=== PATIENT | female | born 1950 | race Caucasian/White ===

== ENCOUNTER 2020-10-18 02:18 | Outpatient (RCR) | payer MEDICARE, SELFPAY ==
[2020-09-27] MEDS: Normal Saline Flush 10 ML SYR IVP (09:00)
[2020-09-27 09:04] LABS: Abs Immature Grans 0.02 10^3/uL (0.0-0.06); Absolute Basophil Count 0.07 10^3/uL (0.0-0.2); Absolute Eosinophil Count 0.23 10^3/uL (0.0-0.7); Absolute Lymphocyte Count 1.47 10^3/uL (1.2-3.4); Absolute Monocyte Count 0.63 10^3/uL (0.1-0.8); Absolute Neutrophil Count 2.08 10^3/uL (1.2-6.7); Basophils % 1.6; Eosinophils % 5.1; HCT 37.9 % (36.0-46.0); HGB 12.6 g/dL (11.2-15.7); Immature Grans % 0.4; Lymphocytes % 32.7; MCH 32.6 pg (27.0-33.0); MCHC 33.2 % (32.0-36.0); MCV 97.9 fL (80-95); MPV 10.1 fL (8.0-11.0); Neutrophils % 46.2; Nucleated RBC 0 %; Platelet Count 246 10^3/uL (130-400); RBC 3.87 10^6/uL (3.93-5.22); RDW 13.9 % (11.7-14.6); RDW-SD 50.2 fL
[2020-09-27 09:20] LABS: ALT 29 U/L (14-59); AST 23 U/L (15-37); Albumin 3.8 g/dL (3.4-5.0); Alkaline Phosphatase 74 U/L (46-116); Anion Gap 6.4 mmol/L (3-11); BUN 13 mg/dL (7-18); Bilirubin, Total 0.5 mg/dL (0.2-1.0); CO2 28.6 mmol/L (21.0-32.0); Calcium 9.1 mg/dL (8.5-10.1); Chloride 99 mmol/L (98-107); Glucose 102 mg/dL (74-106); Potassium 3.8 mmol/L (3.5-5.1); Sodium 134 mmol/L (136-145); Total Protein 7.6 g/dL (6.4-8.2)
[2020-09-27 09:20] LABS: Bilirubin Negative (Negative); Blood Negative (Negative); Clarity Clear (Clear); Glucose Negative (Negative); Ketones Negative (Negative); Leukocyte Esterase Trace (Negative); Nitrite Negative (Negative); Specific Gravity 1.015 (1.005-1.025); Urobilinogen 0.2 EU/dL (Up TO 0.2); pH 7.5 (5-8)
[2020-09-27 09:35] LABS: Bacteria Negative HPF (Negative); C & S Indicated? No; Casts Negative LPF (Negative); Crystals Negative HPF (Negative); Epithelial Cells Few HPF (Negative); Mucus Negative (Negative); RBC 0-2 HPF (0-2)
[2020-10-18] MEDS: Normal Saline Flush 10 ML SYR IVP (09:05)
[2020-10-18 09:14] LABS: Abs Immature Grans 0.03 10^3/uL (0.0-0.06); Absolute Basophil Count 0.07 10^3/uL (0.0-0.2); Absolute Eosinophil Count 0.03 10^3/uL (0.0-0.7); Absolute Lymphocyte Count 1.36 10^3/uL (1.2-3.4); Absolute Monocyte Count 0.91 10^3/uL (0.1-0.8); Absolute Neutrophil Count 4.26 10^3/uL (1.2-6.7); Basophils % 1.1; Eosinophils % 0.5; HCT 36.2 % (36.0-46.0); HGB 12.3 g/dL (11.2-15.7); Immature Grans % 0.5; Lymphocytes % 20.4; MCV 94.3 fL (80-95); MPV 9.9 fL (8.0-11.0); Monocytes % 13.7; Neutrophils % 63.8; Nucleated RBC 0 %; Platelet Count 282 10^3/uL (130-400); RBC 3.84 10^6/uL (3.93-5.22); RDW 13.4 % (11.7-14.6); RDW-SD 46.1 fL; WBC 6.66 10^3/uL (4.4-10.8)
[2020-10-18 09:15] LABS: Bilirubin Negative (Negative); Blood Negative (Negative); Clarity Clear (Clear); Glucose Negative (Negative); Ketones Negative (Negative); Leukocyte Esterase Negative (Negative); Nitrite Negative (Negative); Specific Gravity 1.015 (1.005-1.025); Urobilinogen 0.2 EU/dL (Up TO 0.2)
[2020-10-18 09:30] LABS: ALT 36 U/L (14-59); AST 34 U/L (15-37); Albumin 3.3 g/dL (3.4-5.0); Alkaline Phosphatase 71 U/L (46-116); Anion Gap 5.5 mmol/L (3-11); BUN 8 mg/dL (7-18); Bilirubin, Total 0.4 mg/dL (0.2-1.0); CO2 29.5 mmol/L (21.0-32.0); CREATININE 0.92 mg/dL (0.55-1.02); Calcium 9.2 mg/dL (8.5-10.1); Chloride 97 mmol/L (98-107); Glucose 96 mg/dL (74-106); Magnesium 1.9 mg/dL (1.8-2.4); Potassium 3.7 mmol/L (3.5-5.1); Sodium 132 mmol/L (136-145); Total Protein 7.2 g/dL (6.4-8.2)
== END 2020-10-25 23:59 | disposition home or self-care (01) ==
LOC: INF 02:18
PROVIDERS: PCP Family Medicine; Visit Provider Internal Medicine Medical Oncology
DX: C34.92 Malignant neoplasm of unspecified part of left bronchus or lung (principal); Z45.2 Encounter for adjustment and management of vascular access device
CPT/HCPCS: 36591; 80053; 81003; 81015; 83735; 85025

== ENCOUNTER 2020-11-08 01:28 | Outpatient (RCR) | payer MEDICARE, SELFPAY ==
[2020-11-08] MEDS: Normal Saline Flush 10 ML SYR IVP (09:06)
[2020-11-08] MEDS: Heparin 500 UNITS/5 ML SYRINGE IV (09:07)
[2020-11-08 09:22] LABS: Abs Immature Grans 0.04 10^3/uL (0.0-0.06); Absolute Basophil Count 0.06 10^3/uL (0.0-0.2); Absolute Eosinophil Count 0.07 10^3/uL (0.0-0.7); Absolute Lymphocyte Count 1.33 10^3/uL (1.2-3.4); Absolute Monocyte Count 0.83 10^3/uL (0.1-0.8); Absolute Neutrophil Count 4.03 10^3/uL (1.2-6.7); Basophils % 0.9; Eosinophils % 1.1; HCT 33.9 % (36.0-46.0); HGB 11.3 g/dL (11.2-15.7); Immature Grans % 0.6; Lymphocytes % 20.9; MCH 31.8 pg (27.0-33.0); MCHC 33.3 % (32.0-36.0); MCV 95.5 fL (80-95); MPV 9.9 fL (8.0-11.0); Monocytes % 13.1; Neutrophils % 63.4; Nucleated RBC 0 %; Platelet Count 396 10^3/uL (130-400); RBC 3.55 10^6/uL (3.93-5.22); RDW 14.8 % (11.7-14.6); RDW-SD 51.7 fL; WBC 6.36 10^3/uL (4.4-10.8)
[2020-11-08 09:23] LABS: Bilirubin Negative (Negative); Blood Negative (Negative); Clarity Clear (Clear); Glucose Negative (Negative); Ketones Negative (Negative); Leukocyte Esterase Trace (Negative); Nitrite Negative (Negative); Urobilinogen 0.2 EU/dL (Up TO 0.2)
[2020-11-08 09:32] LABS: Bacteria Moderate HPF (Negative); C & S Indicated? No/Sq. Contamination; Casts Negative LPF (Negative); Crystals Negative HPF (Negative); Epithelial Cells Many HPF (Negative); Mucus Negative (Negative); Other Cells Negative (Negative); RBC 0-2 HPF (0-2)
[2020-11-08 09:33] LABS: ALT 38 U/L (14-59); AST 26 U/L (15-37); Alkaline Phosphatase 80 U/L (46-116); Anion Gap 9.4 mmol/L (3-11); BUN 14 mg/dL (7-18); Bilirubin, Total 0.4 mg/dL (0.2-1.0); CO2 28.6 mmol/L (21.0-32.0); CREATININE 0.96 mg/dL (0.55-1.02); Calcium 8.9 mg/dL (8.5-10.1); Chloride 97 mmol/L (98-107); Estimated GFR 57.97 (mL/min/1.73m2); Glucose 102 mg/dL (74-106); Magnesium 1.9 mg/dL (1.8-2.4); Potassium 3.5 mmol/L (3.5-5.1); Sodium 135 mmol/L (136-145); Total Protein 6.9 g/dL (6.4-8.2)
== END 2020-11-25 23:59 | disposition home or self-care (01) ==
LOC: INF 01:28
PROVIDERS: PCP Family Medicine; Visit Provider Internal Medicine Medical Oncology
DX: C34.92 Malignant neoplasm of unspecified part of left bronchus or lung (principal); Z45.2 Encounter for adjustment and management of vascular access device
CPT/HCPCS: 36591; 80053; 81003; 81015; 83735; 85025

== ENCOUNTER 2020-12-20 02:58 | Outpatient (RCR) | payer MEDICARE, SELFPAY ==
[2020-11-29] MEDS: Normal Saline Flush 10 ML SYR IVP (08:05)
[2020-11-29 08:29] LABS: Abs Immature Grans 0.01 10^3/uL (0.0-0.06); Absolute Basophil Count 0.08 10^3/uL (0.0-0.2); Absolute Eosinophil Count 0.66 10^3/uL (0.0-0.7); Absolute Lymphocyte Count 1.21 10^3/uL (1.2-3.4); Absolute Monocyte Count 0.64 10^3/uL (0.1-0.8); Absolute Neutrophil Count 2.32 10^3/uL (1.2-6.7); Basophils % 1.6; Eosinophils % 13.4; HCT 36.6 % (36.0-46.0); HGB 12.2 g/dL (11.2-15.7); Immature Grans % 0.2; Lymphocytes % 24.6; MCH 31.6 pg (27.0-33.0); MCHC 33.3 % (32.0-36.0); MCV 94.8 fL (80-95); MPV 10.5 fL (8.0-11.0); Neutrophils % 47.2; Nucleated RBC 0 %; Platelet Count 221 10^3/uL (130-400); RBC 3.86 10^6/uL (3.93-5.22); RDW 15.7 % (11.7-14.6); RDW-SD 55.3 fL; WBC 4.92 10^3/uL (4.4-10.8)
[2020-11-29 08:31] LABS: Bilirubin Negative (Negative); Blood Negative (Negative); Clarity Clear (Clear); Glucose Negative (Negative); Ketones Negative (Negative); Leukocyte Esterase Trace (Negative); Nitrite Negative (Negative); Specific Gravity 1.015 (1.005-1.025); Urobilinogen 0.2 EU/dL (Up TO 0.2)
[2020-11-29 08:42] LABS: ALT 24 U/L (14-59); AST 23 U/L (15-37); Albumin 3.2 g/dL (3.4-5.0); Alkaline Phosphatase 79 U/L (46-116); BUN 13 mg/dL (7-18); Bilirubin, Total 0.5 mg/dL (0.2-1.0); CREATININE 0.92 mg/dL (0.55-1.02); Chloride 99 mmol/L (98-107); Glucose 102 mg/dL (74-106); Magnesium 1.9 mg/dL (1.8-2.4); Potassium 3.5 mmol/L (3.5-5.1); Sodium 132 mmol/L (136-145); Total Protein 6.9 g/dL (6.4-8.2)
[2020-11-29 08:43] LABS: Bacteria Rare HPF (Negative); C & S Indicated? Yes; Casts Negative LPF (Negative); Crystals Negative HPF (Negative); Epithelial Cells Few HPF (Negative); Mucus Negative (Negative); RBC Negative HPF (0-2)
[2020-12-20] MEDS: Normal Saline Flush 10 ML SYR IVP (08:00)
[2020-12-20 08:11] LABS: Abs Immature Grans 0.11 10^3/uL (0.0-0.06); Absolute Basophil Count 0.12 10^3/uL (0.0-0.2); Absolute Eosinophil Count 0.37 10^3/uL (0.0-0.7); Absolute Lymphocyte Count 1.42 10^3/uL (1.2-3.4); Absolute Monocyte Count 0.89 10^3/uL (0.1-0.8); Absolute Neutrophil Count 4.03 10^3/uL (1.2-6.7); Basophils % 1.7; Eosinophils % 5.3; HCT 39.7 % (36.0-46.0); Immature Grans % 1.6; Lymphocytes % 20.5; MCH 30.9 pg (27.0-33.0); MCHC 32.7 % (32.0-36.0); MCV 94.3 fL (80-95); MPV 9.7 fL (8.0-11.0); Monocytes % 12.8; Neutrophils % 58.1; Nucleated RBC 0 %; Platelet Count 278 10^3/uL (130-400); RBC 4.21 10^6/uL (3.93-5.22); RDW 15.5 % (11.7-14.6); RDW-SD 53.4 fL; WBC 6.94 10^3/uL (4.4-10.8)
[2020-12-20 08:25] LABS: ALT 21 U/L (14-59); AST 19 U/L (15-37); Albumin 2.9 g/dL (3.4-5.0); Alkaline Phosphatase 91 U/L (46-116); Anion Gap 6.1 mmol/L (3-11); BUN 9 mg/dL (7-18); Bilirubin, Total 0.4 mg/dL (0.2-1.0); CO2 27.9 mmol/L (21.0-32.0); CREATININE 0.98 mg/dL (0.55-1.02); Calcium 8.9 mg/dL (8.5-10.1); Chloride 99 mmol/L (98-107); Estimated GFR 56.44 (mL/min/1.73m2); Glucose 99 mg/dL (74-106); Potassium 3.8 mmol/L (3.5-5.1); Sodium 133 mmol/L (136-145); Total Protein 6.6 g/dL (6.4-8.2)
[2020-12-20 09:12] LABS: Magnesium 1.8 mg/dL (1.8-2.4)
== END 2020-12-26 23:59 | disposition home or self-care (01) ==
LOC: INF 02:58
PROVIDERS: PCP Family Medicine; Visit Provider Internal Medicine Medical Oncology
DX: C34.92 Malignant neoplasm of unspecified part of left bronchus or lung (principal); Z45.2 Encounter for adjustment and management of vascular access device
CPT/HCPCS: 36591; 80053; 81003; 81015; 83735; 85025; 87086

== ENCOUNTER 2021-02-21 02:56 | Outpatient (RCR) | payer MEDICARE, SELFPAY ==
[2021-01-31] MEDS: Normal Saline Flush 10 ML SYR IVP (07:08)
[2021-01-31 07:28] LABS: Abs Immature Grans 0.01 10^3/uL (0.0-0.06); Absolute Basophil Count 0.09 10^3/uL (0.0-0.2); Absolute Eosinophil Count 0.04 10^3/uL (0.0-0.7); Absolute Lymphocyte Count 1.35 10^3/uL (1.2-3.4); Absolute Monocyte Count 0.84 10^3/uL (0.1-0.8); Absolute Neutrophil Count 3.43 10^3/uL (1.2-6.7); Basophils % 1.6; Eosinophils % 0.7; HCT 38.9 % (36.0-46.0); HGB 12.9 g/dL (11.2-15.7); Immature Grans % 0.2; Lymphocytes % 23.4; MCH 29.7 pg (27.0-33.0); MCHC 33.2 % (32.0-36.0); MCV 89.6 fL (80-95); MPV 9.6 fL (8.0-11.0); Monocytes % 14.6; Neutrophils % 59.5; Nucleated RBC 0 %; Platelet Count 397 10^3/uL (130-400); RBC 4.34 10^6/uL (3.93-5.22); WBC 5.76 10^3/uL (4.4-10.8)
[2021-01-31 07:32] LABS: Bilirubin Negative (Negative); Blood Small (Negative); Clarity Cloudy (Clear); Glucose Negative (Negative); Ketones Negative (Negative); Leukocyte Esterase Negative (Negative); Nitrite Negative (Negative); Specific Gravity 1.025 (1.005-1.025); Urobilinogen 0.2 EU/dL (Up TO 0.2); pH 6.5 (5-8)
[2021-01-31 07:44] LABS: Bacteria Few HPF (Negative); C & S Indicated? No/Sq. Contamination; Casts Negative LPF (Negative); Crystals Negative HPF (Negative); Epithelial Cells Many HPF (Negative); Mucus Moderate (Negative); RBC 0-2 HPF (0-2); WBC 0-2 HPF (0-5)
[2021-01-31 07:52] LABS: ALT 16 U/L (14-59); AST 22 U/L (15-37); Albumin 2.6 g/dL (3.4-5.0); Alkaline Phosphatase 73 U/L (46-116); Anion Gap 6.1 mmol/L (3-11); BUN 6 mg/dL (7-18); Bilirubin, Total 0.6 mg/dL (0.2-1.0); CO2 29.9 mmol/L (21.0-32.0); CREATININE 1.1 mg/dL (0.55-1.02); Calcium 8.7 mg/dL (8.5-10.1); Chloride 97 mmol/L (98-107); Estimated GFR 49.39 (mL/min/1.73m2); FREE T4 1.31 ng/dL (0.76-1.46); Glucose 100 mg/dL (74-106); Magnesium 1.8 mg/dL (1.8-2.4); Potassium 3.3 mmol/L (3.5-5.1); Sodium 133 mmol/L (136-145); TSH 28.23 uIU/mL (0.36-3.74); Total Protein 6.4 g/dL (6.4-8.2)
== END 2021-02-23 23:59 | disposition home or self-care (01) ==
LOC: INF 02:56
PROVIDERS: PCP Family Medicine; Visit Provider Internal Medicine Medical Oncology
DX: C34.92 Malignant neoplasm of unspecified part of left bronchus or lung (principal); Z79.899 Other long term (current) drug therapy; Z45.2 Encounter for adjustment and management of vascular access device
CPT/HCPCS: 36591; 80053; 81003; 81015; 83735; 84439; 84443; 85025

== ENCOUNTER 2021-03-14 02:38 | Outpatient (RCR) | payer MEDICARE, SELFPAY ==
[2021-03-14 07:15] LABS: Abs Immature Grans 0.36 10^3/uL (0.0-0.06); Absolute Basophil Count 0.03 10^3/uL (0.0-0.2); Absolute Eosinophil Count 0.02 10^3/uL (0.0-0.7); Absolute Lymphocyte Count 2.51 10^3/uL (1.2-3.4); Absolute Monocyte Count 0.53 10^3/uL (0.1-0.8); Absolute Neutrophil Count 4.61 10^3/uL (1.2-6.7); Basophils % 0.4; Eosinophils % 0.2; HCT 36.8 % (36.0-46.0); HGB 12.2 g/dL (11.2-15.7); Immature Grans % 4.5; Lymphocytes % 31.1; MCH 30.2 pg (27.0-33.0); MCHC 33.2 % (32.0-36.0); MCV 91.1 fL (80-95); MPV 9.4 fL (8.0-11.0); Monocytes % 6.6; Neutrophils % 57.2; Nucleated RBC 0 %; Platelet Count 208 10^3/uL (130-400); RBC 4.04 10^6/uL (3.93-5.22); RDW 18.6 % (11.7-14.6); RDW-SD 60.4 fL; WBC 8.06 10^3/uL (4.4-10.8)
[2021-03-14] MEDS: Normal Saline Flush 10 ML SYR IVP (07:15)
[2021-03-14 07:17] LABS: Bilirubin Negative (Negative); Blood Negative (Negative); Clarity Clear (Clear); Glucose Negative (Negative); Ketones Negative (Negative); Leukocyte Esterase Trace (Negative); Nitrite Negative (Negative); Urobilinogen 0.2 EU/dL (Up TO 0.2)
[2021-03-14 07:32] LABS: Bacteria Rare HPF (Negative); C & S Indicated? Yes; Casts Negative LPF (Negative); Crystals Negative HPF (Negative); Epithelial Cells Few HPF (Negative); Mucus Trace (Negative); RBC Negative HPF (0-2)
[2021-03-14 07:37] LABS: ALT 44 U/L (14-59); AST 25 U/L (15-37); Albumin 3.2 g/dL (3.4-5.0); Alkaline Phosphatase 57 U/L (46-116); Anion Gap 5.3 mmol/L (3-11); BUN 14 mg/dL (7-18); Bilirubin, Total 0.3 mg/dL (0.2-1.0); CO2 30.7 mmol/L (21.0-32.0); CREATININE 0.9 mg/dL (0.55-1.02); Calcium 9.1 mg/dL (8.5-10.1); Chloride 100 mmol/L (98-107); FREE T4 1.33 ng/dL (0.76-1.46); Glucose 89 mg/dL (74-106); Magnesium 1.7 mg/dL (1.8-2.4); Potassium 3.3 mmol/L (3.5-5.1); Sodium 136 mmol/L (136-145); TSH 3.41 uIU/mL (0.36-3.74); Total Protein 6.2 g/dL (6.4-8.2)
== END 2021-03-25 23:59 | disposition home or self-care (01) ==
LOC: INF 02:38
PROVIDERS: PCP Family Medicine; Visit Provider Internal Medicine Medical Oncology
DX: E03.9 Hypothyroidism, unspecified (principal); C34.92 Malignant neoplasm of unspecified part of left bronchus or lung; Z45.2 Encounter for adjustment and management of vascular access device
CPT/HCPCS: 36591; 80053; 81003; 81015; 83735; 84439; 84443; 85025; 87086

== ENCOUNTER 2021-05-23 02:52 | Outpatient (RCR) | payer MEDICARE, SELFPAY ==
[2021-05-02 07:53] LABS: Abs Immature Grans 0.14 10^3/uL (0.0-0.06); Absolute Basophil Count 0.06 10^3/uL (0.0-0.2); Absolute Eosinophil Count 0.05 10^3/uL (0.0-0.7); Absolute Lymphocyte Count 1.54 10^3/uL (1.2-3.4); Absolute Monocyte Count 0.74 10^3/uL (0.1-0.8); Absolute Neutrophil Count 5.96 10^3/uL (1.2-6.7); Basophils % 0.7; Eosinophils % 0.6; HCT 38.5 % (36.0-46.0); HGB 13.2 g/dL (11.2-15.7); Immature Grans % 1.6; Lymphocytes % 18.1; MCH 32.7 pg (27.0-33.0); MCHC 34.3 % (32.0-36.0); MCV 95.3 fL (80-95); MPV 9.5 fL (8.0-11.0); Monocytes % 8.7; Neutrophils % 70.3; Nucleated RBC 0 %; Platelet Count 227 10^3/uL (130-400); RBC 4.04 10^6/uL (3.93-5.22); RDW 19.5 % (11.7-14.6); RDW-SD 68.3 fL; WBC 8.49 10^3/uL (4.4-10.8)
[2021-05-02 07:54] LABS: Bilirubin Negative (Negative); Blood Negative (Negative); Clarity Clear (Clear); Glucose Negative (Negative); Ketones Negative (Negative); Leukocyte Esterase Trace (Negative); Nitrite Negative (Negative); Urobilinogen 0.2 EU/dL (Up TO 0.2); pH 7.5 (5-8)
[2021-05-02 08:04] LABS: Bacteria Rare HPF (Negative); C & S Indicated? Yes; Casts Negative LPF (Negative); Crystals Negative HPF (Negative); Epithelial Cells Few HPF (Negative); Mucus Negative (Negative); Other Cells Few Renal (Negative); RBC Negative HPF (0-2)
[2021-05-02 08:14] LABS: ALT 27 U/L (14-59); AST 21 U/L (15-37); Alkaline Phosphatase 53 U/L (46-116); Anion Gap 8.3 mmol/L (3-11); BUN 12 mg/dL (7-18); Bilirubin, Total 0.5 mg/dL (0.2-1.0); CO2 28.7 mmol/L (21.0-32.0); CREATININE 0.9 mg/dL (0.55-1.02); Calcium 8.8 mg/dL (8.5-10.1); Chloride 97 mmol/L (98-107); FREE T4 1.33 ng/dL (0.76-1.46); Glucose 92 mg/dL (74-106); Potassium 3.8 mmol/L (3.5-5.1); Sodium 134 mmol/L (136-145); TSH 3.16 uIU/mL (0.36-3.74); Total Protein 6.2 g/dL (6.4-8.2)
[2021-05-02] MEDS: Normal Saline Flush 10 ML SYR IVP (08:23)
[2021-05-23] MEDS: Normal Saline Flush 10 ML SYR IVP (10:41)
[2021-05-23 10:59] LABS: Abs Immature Grans 0.49 10^3/uL (0.0-0.06); Absolute Basophil Count 0.09 10^3/uL (0.0-0.2); Absolute Eosinophil Count 0.01 10^3/uL (0.0-0.7); Absolute Lymphocyte Count 1.42 10^3/uL (1.2-3.4); Absolute Monocyte Count 0.84 10^3/uL (0.1-0.8); Absolute Neutrophil Count 8.31 10^3/uL (1.2-6.7); Basophils % 0.8; Eosinophils % 0.1; HCT 39.4 % (36.0-46.0); HGB 13.2 g/dL (11.2-15.7); Immature Grans % 4.4; Lymphocytes % 12.7; MCH 32.5 pg (27.0-33.0); MCHC 33.5 % (32.0-36.0); MPV 8.9 fL (8.0-11.0); Monocytes % 7.5; Neutrophils % 74.5; Nucleated RBC 0 %; Platelet Count 236 10^3/uL (130-400); RBC 4.06 10^6/uL (3.93-5.22); RDW-SD 63.6 fL; WBC 11.16 10^3/uL (4.4-10.8)
[2021-05-23 11:01] LABS: Bilirubin Negative (Negative); Blood Negative (Negative); Clarity Clear (Clear); Glucose Negative (Negative); Ketones Negative (Negative); Leukocyte Esterase Trace (Negative); Nitrite Negative (Negative); Specific Gravity 1.015 (1.005-1.025); Urobilinogen 0.2 EU/dL (Up TO 0.2)
[2021-05-23 11:08] LABS: Bacteria Rare HPF (Negative); C & S Indicated? Yes; Casts Negative LPF (Negative); Crystals Negative HPF (Negative); Epithelial Cells Few HPF (Negative); Mucus Negative (Negative); RBC Negative HPF (0-2)
[2021-05-23 11:33] LABS: ALT 31 U/L (14-59); AST 22 U/L (15-37); Albumin 3.1 g/dL (3.4-5.0); Alkaline Phosphatase 44 U/L (46-116); Anion Gap 5.9 mmol/L (3-11); BUN 15 mg/dL (7-18); Bilirubin, Total 0.4 mg/dL (0.2-1.0); CO2 30.1 mmol/L (21.0-32.0); CREATININE 0.8 mg/dL (0.55-1.02); Calcium 8.8 mg/dL (8.5-10.1); Chloride 98 mmol/L (98-107); FREE T4 1.35 ng/dL (0.76-1.46); Glucose 103 mg/dL (74-106); Magnesium 2.1 mg/dL (1.8-2.4); Potassium 3.8 mmol/L (3.5-5.1); Sodium 134 mmol/L (136-145); TSH 0.78 uIU/mL (0.36-3.74); Total Protein 6.1 g/dL (6.4-8.2)
== END 2021-05-25 23:59 | disposition home or self-care (01) ==
LOC: INF 02:52
PROVIDERS: PCP Family Medicine; Visit Provider Internal Medicine Medical Oncology
DX: C34.92 Malignant neoplasm of unspecified part of left bronchus or lung (principal); E03.9 Hypothyroidism, unspecified; Z45.2 Encounter for adjustment and management of vascular access device; Z79.899 Other long term (current) drug therapy
CPT/HCPCS: 36591; 80053; 81003; 81015; 83735; 84439; 84443; 85025; 87086

== ENCOUNTER 2021-07-11 02:39 | Outpatient (RCR) | payer MEDICARE, SELFPAY ==
[2021-07-11] MEDS: Normal Saline Flush 10 ML SYR IVP (10:34)
[2021-07-11] MEDS: Heparin 500 UNITS/5 ML SYRINGE IV (10:34)
[2021-07-11 11:28] LABS: Abs Immature Grans 0.23 10^3/uL (0.0-0.06); Absolute Basophil Count 0.07 10^3/uL (0.0-0.2); Absolute Eosinophil Count 0.05 10^3/uL (0.0-0.7); Absolute Lymphocyte Count 1.55 10^3/uL (1.2-3.4); Absolute Monocyte Count 0.63 10^3/uL (0.1-0.8); Absolute Neutrophil Count 7.75 10^3/uL (1.2-6.7); Basophils % 0.7; Eosinophils % 0.5; HCT 39.1 % (36.0-46.0); HGB 13.2 g/dL (11.2-15.7); Immature Grans % 2.2; Lymphocytes % 15.1; MCH 33.4 pg (27.0-33.0); MCHC 33.8 % (32.0-36.0); MPV 9.4 fL (8.0-11.0); Monocytes % 6.1; Neutrophils % 75.4; Nucleated RBC 0 %; Platelet Count 279 10^3/uL (130-400); RBC 3.95 10^6/uL (3.93-5.22); RDW-SD 58.8 fL; WBC 10.28 10^3/uL (4.4-10.8)
[2021-07-11 11:29] LABS: Bilirubin Negative (Negative); Blood Negative (Negative); Clarity Clear (Clear); Glucose Negative (Negative); Ketones Negative (Negative); Leukocyte Esterase Moderate (Negative); Nitrite Negative (Negative); Specific Gravity 1.015 (1.005-1.025); Urobilinogen 0.2 EU/dL (Up TO 0.2)
[2021-07-11 11:38] LABS: Bacteria Few HPF (Negative); C & S Indicated? No/Sq. Contamination; Casts Negative LPF (Negative); Crystals Negative HPF (Negative); Epithelial Cells Many HPF (Negative); Mucus Negative (Negative); RBC Negative HPF (0-2)
[2021-07-11 11:50] LABS: ALT 30 U/L (14-59); AST 20 U/L (15-37); Albumin 2.9 g/dL (3.4-5.0); Alkaline Phosphatase 51 U/L (46-116); BUN 14 mg/dL (7-18); Bilirubin, Total 0.5 mg/dL (0.2-1.0); CREATININE 0.9 mg/dL (0.55-1.02); Calcium 8.6 mg/dL (8.5-10.1); Chloride 96 mmol/L (98-107); FREE T4 1.41 ng/dL (0.76-1.46); Glucose 94 mg/dL (74-106); Potassium 3.5 mmol/L (3.5-5.1); Sodium 133 mmol/L (136-145); TSH 2.19 uIU/mL (0.36-3.74); Total Protein 5.7 g/dL (6.4-8.2)
== END 2021-07-26 23:59 | disposition home or self-care (01) ==
LOC: INF 02:39
PROVIDERS: PCP Family Medicine; Visit Provider Internal Medicine Medical Oncology
DX: C34.92 Malignant neoplasm of unspecified part of left bronchus or lung (principal); E03.9 Hypothyroidism, unspecified; Z79.899 Other long term (current) drug therapy; Z45.2 Encounter for adjustment and management of vascular access device
CPT/HCPCS: 36591; 80053; 81003; 81015; 83735; 84439; 84443; 85025

== ENCOUNTER 2021-10-17 01:39 | Outpatient (RCR) | payer MEDICARE, SELFPAY ==
[2021-10-17] MEDS: Normal Saline Flush 10 ML SYR IVP (12:04)
[2021-10-17 12:12] LABS: Abs Immature Grans 0.38 10^3/uL (0.0-0.06); Absolute Basophil Count 0.05 10^3/uL (0.0-0.2); Absolute Eosinophil Count 0.09 10^3/uL (0.0-0.7); Absolute Lymphocyte Count 1.35 10^3/uL (1.2-3.4); Absolute Monocyte Count 1.38 10^3/uL (0.1-0.8); Absolute Neutrophil Count 5.98 10^3/uL (1.2-6.7); Basophils % 0.5; HCT 37.5 % (36.0-46.0); HGB 12.4 g/dL (11.2-15.7); Immature Grans % 4.1; Lymphocytes % 14.6; MCH 33.2 pg (27.0-33.0); MCHC 33.1 % (32.0-36.0); MCV 100.3 fL (80-95); MPV 8.7 fL (8.0-11.0); Neutrophils % 64.8; Nucleated RBC 0 %; Platelet Count 440 10^3/uL (130-400); RBC 3.74 10^6/uL (3.93-5.22); RDW 14.1 % (11.7-14.6); RDW-SD 51.7 fL; WBC 9.23 10^3/uL (4.4-10.8)
[2021-10-17 12:25] LABS: ALT 32 U/L (14-59); AST 14 U/L (15-37); Albumin 2.9 g/dL (3.4-5.0); Alkaline Phosphatase 75 U/L (46-116); Anion Gap 6.9 mmol/L (3-11); BUN 15 mg/dL (7-18); Bilirubin, Total 0.5 mg/dL (0.2-1.0); CO2 30.1 mmol/L (21.0-32.0); CREATININE 0.9 mg/dL (0.55-1.02); Calcium 8.5 mg/dL (8.5-10.1); Chloride 96 mmol/L (98-107); Glucose 94 mg/dL (74-106); Magnesium 1.9 mg/dL (1.8-2.4); Potassium 3.5 mmol/L (3.5-5.1); Sodium 133 mmol/L (136-145); Total Protein 5.8 g/dL (6.4-8.2)
== END 2021-10-25 23:59 | disposition home or self-care (01) ==
LOC: INF 01:39
PROVIDERS: PCP Family Medicine; Visit Provider Internal Medicine Medical Oncology
DX: C34.92 Malignant neoplasm of unspecified part of left bronchus or lung (principal); Z45.2 Encounter for adjustment and management of vascular access device
CPT/HCPCS: 36591; 80053; 83735; 85025

== ENCOUNTER 2021-11-21 03:31 | Outpatient (RCR) | payer MEDICARE, SELFPAY ==
[2021-10-31] MEDS: Normal Saline Flush 10 ML SYR IVP (12:37)
[2021-10-31 12:58] LABS: Abs Immature Grans 0.08 10^3/uL (0.0-0.06); Absolute Basophil Count 0.04 10^3/uL (0.0-0.2); Absolute Eosinophil Count 0.11 10^3/uL (0.0-0.7); Absolute Lymphocyte Count 1.12 10^3/uL (1.2-3.4); Absolute Neutrophil Count 3.28 10^3/uL (1.2-6.7); Basophils % 0.8; Eosinophils % 2.1; HCT 37.6 % (36.0-46.0); HGB 12.7 g/dL (11.2-15.7); Immature Grans % 1.6; Lymphocytes % 21.8; MCH 33.3 pg (27.0-33.0); MCHC 33.8 % (32.0-36.0); MCV 98.7 fL (80-95); MPV 9.2 fL (8.0-11.0); Monocytes % 9.7; Nucleated RBC 0 %; Platelet Count 411 10^3/uL (130-400); RBC 3.81 10^6/uL (3.93-5.22); RDW 13.6 % (11.7-14.6); RDW-SD 49.4 fL; WBC 5.13 10^3/uL (4.4-10.8)
[2021-10-31 13:13] LABS: ALT 27 U/L (14-59); AST 22 U/L (15-37); Alkaline Phosphatase 102 U/L (46-116); Anion Gap 8.9 mmol/L (3-11); BUN 10 mg/dL (7-18); Bilirubin, Total 0.4 mg/dL (0.2-1.0); CO2 28.1 mmol/L (21.0-32.0); CREATININE 0.9 mg/dL (0.55-1.02); Calcium 9.3 mg/dL (8.5-10.1); Chloride 97 mmol/L (98-107); Glucose 102 mg/dL (74-106); Magnesium 1.8 mg/dL (1.8-2.4); Potassium 3.6 mmol/L (3.5-5.1); Sodium 134 mmol/L (136-145); Total Protein 6.5 g/dL (6.4-8.2)
[2021-11-07] MEDS: Normal Saline Flush 10 ML SYR IVP (14:00)
[2021-11-07 14:09] LABS: Abs Immature Grans 0.03 10^3/uL (0.0-0.06); Absolute Basophil Count 0.05 10^3/uL (0.0-0.2); Absolute Eosinophil Count 0.07 10^3/uL (0.0-0.7); Absolute Lymphocyte Count 1.02 10^3/uL (1.2-3.4); Absolute Monocyte Count 0.24 10^3/uL (0.1-0.8); Absolute Neutrophil Count 2.06 10^3/uL (1.2-6.7); Basophils % 1.4; HGB 11.3 g/dL (11.2-15.7); Immature Grans % 0.9; Lymphocytes % 29.4; MCH 32.4 pg (27.0-33.0); MCHC 34.2 % (32.0-36.0); MCV 94.6 fL (80-95); MPV 9.5 fL (8.0-11.0); Monocytes % 6.9; Neutrophils % 59.4; Nucleated RBC 0 %; Platelet Count 360 10^3/uL (130-400); RBC 3.49 10^6/uL (3.93-5.22); RDW 13.2 % (11.7-14.6); RDW-SD 45.6 fL; WBC 3.47 10^3/uL (4.4-10.8)
[2021-11-07 14:24] LABS: ALT 27 U/L (14-59); AST 20 U/L (15-37); Albumin 2.9 g/dL (3.4-5.0); Alkaline Phosphatase 78 U/L (46-116); Anion Gap 5.8 mmol/L (3-11); BUN 9 mg/dL (7-18); Bilirubin, Total 0.4 mg/dL (0.2-1.0); CO2 29.2 mmol/L (21.0-32.0); CREATININE 0.9 mg/dL (0.55-1.02); Calcium 8.8 mg/dL (8.5-10.1); Chloride 96 mmol/L (98-107); Glucose 120 mg/dL (74-106); Sodium 131 mmol/L (136-145); Total Protein 5.7 g/dL (6.4-8.2)
[2021-11-21] MEDS: Normal Saline Flush 10 ML SYR IVP (11:55)
[2021-11-21 12:01] LABS: Absolute Eosinophil Count 0.03 10^3/uL (0.0-0.7); HCT 34.6 % (36.0-46.0); HGB 11.6 g/dL (11.2-15.7); MCHC 33.5 % (32.0-36.0); MCV 95.6 fL (80-95); Nucleated RBC 0 %; Platelet Count 428 10^3/uL (130-400); RBC 3.62 10^6/uL (3.93-5.22); RDW 13.9 % (11.7-14.6); RDW-SD 48.3 fL; WBC 2.51 10^3/uL (4.4-10.8)
[2021-11-21 12:24] LABS: Absolute Basophil Count 0.03 10^3/uL (0.0-0.2); Absolute Lymphocyte Count 1.15 10^3/uL (1.2-3.4); Bands % 2; Diff Comment Manual Differential; Metamyelocytes % 2; Myelocytes % 2; RBC Morphology Normal
[2021-11-21 12:25] LABS: ALT 43 U/L (14-59); AST 41 U/L (15-37); Alkaline Phosphatase 153 U/L (46-116); BUN 6 mg/dL (7-18); Bilirubin, Total 0.4 mg/dL (0.2-1.0); CREATININE 0.9 mg/dL (0.55-1.02); Calcium 8.9 mg/dL (8.5-10.1); Chloride 97 mmol/L (98-107); Glucose 107 mg/dL (74-106); Potassium 3.5 mmol/L (3.5-5.1); Sodium 133 mmol/L (136-145)
== END 2021-11-25 23:59 | disposition home or self-care (01) ==
LOC: INF 03:31
PROVIDERS: PCP Family Medicine; Visit Provider Internal Medicine Medical Oncology
DX: C34.92 Malignant neoplasm of unspecified part of left bronchus or lung (principal); Z45.2 Encounter for adjustment and management of vascular access device
CPT/HCPCS: 36591; 80053; 83735; 85025

== ENCOUNTER 2021-12-26 01:17 | Outpatient (RCR) | payer MEDICARE, SELFPAY ==
[2021-11-28] MEDS: Normal Saline Flush 10 ML SYR IVP (09:15)
[2021-11-28 09:48] LABS: Abs Immature Grans 0.07 10^3/uL (0.0-0.06); Absolute Basophil Count 0.11 10^3/uL (0.0-0.2); Absolute Eosinophil Count 0.04 10^3/uL (0.0-0.7); Absolute Neutrophil Count 3.53 10^3/uL (1.2-6.7); Basophils % 1.9; Eosinophils % 0.7; HCT 38.1 % (36.0-46.0); HGB 12.7 g/dL (11.2-15.7); Immature Grans % 1.2; Lymphocytes % 19.5; MCH 31.7 pg (27.0-33.0); MCHC 33.3 % (32.0-36.0); MPV 9.4 fL (8.0-11.0); Monocytes % 14.2; Neutrophils % 62.5; Nucleated RBC 0 %; Platelet Count 371 10^3/uL (130-400); RBC 4.01 10^6/uL (3.93-5.22); RDW 13.7 % (11.7-14.6); RDW-SD 47.6 fL; WBC 5.65 10^3/uL (4.4-10.8)
[2021-11-28 09:59] LABS: ALT 27 U/L (14-59); AST 23 U/L (15-37); Albumin 3.1 g/dL (3.4-5.0); Alkaline Phosphatase 136 U/L (46-116); BUN 10 mg/dL (7-18); Bilirubin, Total 0.6 mg/dL (0.2-1.0); CREATININE 0.9 mg/dL (0.55-1.02); Calcium 8.8 mg/dL (8.5-10.1); Chloride 100 mmol/L (98-107); Glucose 102 mg/dL (74-106); Potassium 3.6 mmol/L (3.5-5.1); Sodium 136 mmol/L (136-145); Total Protein 6.1 g/dL (6.4-8.2)
[2021-12-05 08:52] LABS: Abs Immature Grans 0.04 10^3/uL (0.0-0.06); Absolute Basophil Count 0.06 10^3/uL (0.0-0.2); Absolute Eosinophil Count 0.12 10^3/uL (0.0-0.7); Absolute Lymphocyte Count 0.98 10^3/uL (1.2-3.4); Absolute Monocyte Count 0.21 10^3/uL (0.1-0.8); Absolute Neutrophil Count 2.27 10^3/uL (1.2-6.7); Basophils % 1.6; Eosinophils % 3.3; HCT 35.6 % (36.0-46.0); HGB 11.9 g/dL (11.2-15.7); Immature Grans % 1.1; Lymphocytes % 26.6; MCH 31.2 pg (27.0-33.0); MCHC 33.4 % (32.0-36.0); MCV 93.2 fL (80-95); MPV 10.5 fL (8.0-11.0); Monocytes % 5.7; Neutrophils % 61.7; Nucleated RBC 0 %; Platelet Count 289 10^3/uL (130-400); RBC 3.82 10^6/uL (3.93-5.22); RDW 13.2 % (11.7-14.6); RDW-SD 45.4 fL; WBC 3.68 10^3/uL (4.4-10.8)
[2021-12-05 09:07] LABS: ALT 40 U/L (14-59); AST 32 U/L (15-37); Albumin 3.5 g/dL (3.4-5.0); Alkaline Phosphatase 107 U/L (46-116); Anion Gap 8.6 mmol/L (3-11); BUN 12 mg/dL (7-18); Bilirubin, Total 0.7 mg/dL (0.2-1.0); CO2 27.4 mmol/L (21.0-32.0); CREATININE 1.1 mg/dL (0.55-1.02); Calcium 9.4 mg/dL (8.5-10.1); Chloride 97 mmol/L (98-107); Estimated GFR 49.25 (mL/min/1.73m2); Glucose 112 mg/dL (74-106); Potassium 3.5 mmol/L (3.5-5.1); Sodium 133 mmol/L (136-145); Total Protein 6.6 g/dL (6.4-8.2)
[2021-12-05] MEDS: Normal Saline Flush 10 ML SYR IVP (09:59)
[2021-12-26] MEDS: Normal Saline Flush 10 ML SYR IVP (13:02)
[2021-12-26 13:11] LABS: Abs Immature Grans 0.06 10^3/uL (0.0-0.06); Absolute Basophil Count 0.06 10^3/uL (0.0-0.2); Absolute Eosinophil Count 0.17 10^3/uL (0.0-0.7); Absolute Lymphocyte Count 0.93 10^3/uL (1.2-3.4); Absolute Neutrophil Count 4.37 10^3/uL (1.2-6.7); Basophils % 0.9; Eosinophils % 2.7; HCT 36.2 % (36.0-46.0); Immature Grans % 0.9; Lymphocytes % 14.6; MCH 30.4 pg (27.0-33.0); MCHC 33.1 % (32.0-36.0); MCV 91.6 fL (80-95); MPV 9.8 fL (8.0-11.0); Monocytes % 12.5; Neutrophils % 68.4; Nucleated RBC 0 %; Platelet Count 354 10^3/uL (130-400); RBC 3.95 10^6/uL (3.93-5.22); RDW 14.3 % (11.7-14.6); RDW-SD 47.8 fL; WBC 6.39 10^3/uL (4.4-10.8)
[2021-12-26 13:30] LABS: ALT 25 U/L (14-59); AST 20 U/L (15-37); Albumin 3.3 g/dL (3.4-5.0); Alkaline Phosphatase 97 U/L (46-116); Anion Gap 10.7 mmol/L (3-11); BUN 10 mg/dL (7-18); Bilirubin, Total 0.5 mg/dL (0.2-1.0); CO2 25.3 mmol/L (21.0-32.0); CREATININE 0.8 mg/dL (0.55-1.02); Calcium 9.3 mg/dL (8.5-10.1); Chloride 99 mmol/L (98-107); Glucose 106 mg/dL (74-106); Potassium 3.8 mmol/L (3.5-5.1); Sodium 135 mmol/L (136-145); Total Protein 6.7 g/dL (6.4-8.2)
== END 2021-12-26 23:59 | disposition home or self-care (01) ==
LOC: INF 01:17
PROVIDERS: PCP Family Medicine; Visit Provider Internal Medicine Medical Oncology
DX: C34.92 Malignant neoplasm of unspecified part of left bronchus or lung (principal); Z45.2 Encounter for adjustment and management of vascular access device
CPT/HCPCS: 36591; 80053; 85025

== ENCOUNTER 2022-01-18 13:00 | Outpatient (RCR) | payer MEDICARE, SELFPAY ==
[2022-01-02] MEDS: Normal Saline Flush 10 ML SYR IVP (13:19)
[2022-01-02 13:28] LABS: Abs Immature Grans 0.02 10^3/uL (0.0-0.06); Absolute Basophil Count 0.06 10^3/uL (0.0-0.2); Absolute Eosinophil Count 0.37 10^3/uL (0.0-0.7); Absolute Lymphocyte Count 0.91 10^3/uL (1.2-3.4); Absolute Monocyte Count 0.34 10^3/uL (0.1-0.8); Absolute Neutrophil Count 3.24 10^3/uL (1.2-6.7); Basophils % 1.2; Eosinophils % 7.5; HCT 34.4 % (36.0-46.0); HGB 11.7 g/dL (11.2-15.7); Immature Grans % 0.4; Lymphocytes % 18.4; MCH 31.1 pg (27.0-33.0); MCV 91.5 fL (80-95); MPV 10.2 fL (8.0-11.0); Monocytes % 6.9; Neutrophils % 65.6; Nucleated RBC 0 %; Platelet Count 353 10^3/uL (130-400); RBC 3.76 10^6/uL (3.93-5.22); RDW 14.2 % (11.7-14.6); WBC 4.94 10^3/uL (4.4-10.8)
[2022-01-02 13:41] LABS: ALT 20 U/L (14-59); AST 19 U/L (15-37); Albumin 3.3 g/dL (3.4-5.0); Alkaline Phosphatase 87 U/L (46-116); Anion Gap 8.8 mmol/L (3-11); BUN 10 mg/dL (7-18); Bilirubin, Total 0.5 mg/dL (0.2-1.0); CO2 27.2 mmol/L (21.0-32.0); CREATININE 0.8 mg/dL (0.55-1.02); Calcium 9.5 mg/dL (8.5-10.1); Chloride 99 mmol/L (98-107); Glucose 112 mg/dL (74-106); Potassium 3.6 mmol/L (3.5-5.1); Sodium 135 mmol/L (136-145); Total Protein 6.6 g/dL (6.4-8.2)
[2022-01-18] MEDS: Normal Saline Flush 10 ML SYR IVP (13:28)
[2022-01-18 13:50] LABS: Abs Immature Grans 0.03 10^3/uL (0.0-0.06); Absolute Basophil Count 0.07 10^3/uL (0.0-0.2); Absolute Eosinophil Count 0.13 10^3/uL (0.0-0.7); Absolute Lymphocyte Count 1.14 10^3/uL (1.2-3.4); Absolute Neutrophil Count 2.41 10^3/uL (1.2-6.7); Basophils % 1.6; Eosinophils % 2.9; HCT 37.2 % (36.0-46.0); HGB 12.2 g/dL (11.2-15.7); Immature Grans % 0.7; Lymphocytes % 25.4; MCH 30.3 pg (27.0-33.0); MCHC 32.8 % (32.0-36.0); MCV 92.3 fL (80-95); MPV 9.7 fL (8.0-11.0); Monocytes % 15.6; Neutrophils % 53.8; Nucleated RBC 0 %; Platelet Count 346 10^3/uL (130-400); RBC 4.03 10^6/uL (3.93-5.22); RDW 15.6 % (11.7-14.6); WBC 4.48 10^3/uL (4.4-10.8)
[2022-01-18 14:06] LABS: ALT 21 U/L (14-59); AST 20 U/L (15-37); Albumin 3.5 g/dL (3.4-5.0); Alkaline Phosphatase 76 U/L (46-116); Anion Gap 8.8 mmol/L (3-11); BUN 8 mg/dL (7-18); Bilirubin, Total 0.5 mg/dL (0.2-1.0); CO2 27.2 mmol/L (21.0-32.0); CREATININE 0.9 mg/dL (0.55-1.02); Calcium 9.5 mg/dL (8.5-10.1); Chloride 99 mmol/L (98-107); Glucose 134 mg/dL (74-106); Potassium 3.4 mmol/L (3.5-5.1); Sodium 135 mmol/L (136-145); Total Protein 6.5 g/dL (6.4-8.2)
== END 2022-01-23 23:59 | disposition home or self-care (01) ==
LOC: INF 13:00
PROVIDERS: PCP Family Medicine; Visit Provider Internal Medicine Medical Oncology
DX: C34.92 Malignant neoplasm of unspecified part of left bronchus or lung (principal); Z45.2 Encounter for adjustment and management of vascular access device
CPT/HCPCS: 36591; 80053; 85025

== ENCOUNTER 2022-02-13 02:26 | Outpatient (RCR) | payer MEDICARE, SELFPAY ==
[2022-01-26] MEDS: Normal Saline Flush 10 ML SYR IVP (11:55)
[2022-01-26 12:02] LABS: Abs Immature Grans 0.01 10^3/uL (0.0-0.06); Absolute Basophil Count 0.06 10^3/uL (0.0-0.2); Absolute Lymphocyte Count 0.97 10^3/uL (1.2-3.4); Absolute Monocyte Count 0.35 10^3/uL (0.1-0.8); Absolute Neutrophil Count 2.63 10^3/uL (1.2-6.7); Basophils % 1.5; Eosinophils % 2.4; HGB 11.6 g/dL (11.2-15.7); Immature Grans % 0.2; Lymphocytes % 23.5; MCH 30.5 pg (27.0-33.0); MCHC 33.1 % (32.0-36.0); MCV 92.1 fL (80-95); Monocytes % 8.5; Neutrophils % 63.9; Nucleated RBC 0 %; Platelet Count 338 10^3/uL (130-400); RDW 15.2 % (11.7-14.6); RDW-SD 50.7 fL; WBC 4.12 10^3/uL (4.4-10.8)
[2022-01-26 12:21] LABS: ALT 18 U/L (14-59); AST 18 U/L (15-37); Albumin 3.3 g/dL (3.4-5.0); Alkaline Phosphatase 71 U/L (46-116); BUN 9 mg/dL (7-18); Bilirubin, Total 0.5 mg/dL (0.2-1.0); CREATININE 0.8 mg/dL (0.55-1.02); Calcium 9.4 mg/dL (8.5-10.1); Chloride 99 mmol/L (98-107); Glucose 106 mg/dL (74-106); Potassium 3.5 mmol/L (3.5-5.1); Sodium 136 mmol/L (136-145); Total Protein 6.4 g/dL (6.4-8.2)
[2022-02-06] MEDS: Normal Saline Flush 10 ML SYR IVP (12:55)
[2022-02-06 12:59] LABS: Abs Immature Grans 0.01 10^3/uL (0.0-0.06); Absolute Basophil Count 0.04 10^3/uL (0.0-0.2); Absolute Eosinophil Count 0.11 10^3/uL (0.0-0.7); Absolute Lymphocyte Count 1.04 10^3/uL (1.2-3.4); Absolute Monocyte Count 0.44 10^3/uL (0.1-0.8); Absolute Neutrophil Count 1.48 10^3/uL (1.2-6.7); Basophils % 1.3; Eosinophils % 3.5; HGB 12.7 g/dL (11.2-15.7); Immature Grans % 0.3; Lymphocytes % 33.3; MCH 30.3 pg (27.0-33.0); MCHC 33.4 % (32.0-36.0); MCV 90.7 fL (80-95); MPV 9.8 fL (8.0-11.0); Monocytes % 14.1; Neutrophils % 47.5; Nucleated RBC 0 %; Platelet Count 431 10^3/uL (130-400); RBC 4.19 10^6/uL (3.93-5.22); RDW 15.5 % (11.7-14.6); RDW-SD 51.4 fL; WBC 3.12 10^3/uL (4.4-10.8)
[2022-02-06 13:28] LABS: ALT 22 U/L (14-59); AST 18 U/L (15-37); Albumin 3.5 g/dL (3.4-5.0); Alkaline Phosphatase 72 U/L (46-116); Anion Gap 9.7 mmol/L (3-11); BUN 9 mg/dL (7-18); Bilirubin, Total 0.4 mg/dL (0.2-1.0); CO2 27.3 mmol/L (21.0-32.0); CREATININE 0.8 mg/dL (0.55-1.02); Calcium 9.4 mg/dL (8.5-10.1); Chloride 102 mmol/L (98-107); Glucose 106 mg/dL (74-106); Magnesium 1.8 mg/dL (1.8-2.4); Potassium 3.3 mmol/L (3.5-5.1); Sodium 139 mmol/L (136-145); Total Protein 6.7 g/dL (6.4-8.2)
[2022-02-13] MEDS: Normal Saline Flush 10 ML SYR IVP (13:38)
[2022-02-13 13:51] LABS: Abs Immature Grans 0.01 10^3/uL (0.0-0.06); Absolute Basophil Count 0.04 10^3/uL (0.0-0.2); Absolute Eosinophil Count 0.06 10^3/uL (0.0-0.7); Absolute Lymphocyte Count 0.85 10^3/uL (1.2-3.4); Absolute Monocyte Count 0.32 10^3/uL (0.1-0.8); Absolute Neutrophil Count 2.34 10^3/uL (1.2-6.7); Basophils % 1.1; Eosinophils % 1.7; HCT 35.3 % (36.0-46.0); HGB 11.9 g/dL (11.2-15.7); Immature Grans % 0.3; Lymphocytes % 23.5; MCH 30.1 pg (27.0-33.0); MCHC 33.7 % (32.0-36.0); MCV 89.4 fL (80-95); MPV 10.4 fL (8.0-11.0); Monocytes % 8.8; Neutrophils % 64.6; Nucleated RBC 0 %; Platelet Count 324 10^3/uL (130-400); RBC 3.95 10^6/uL (3.93-5.22); RDW 14.7 % (11.7-14.6); RDW-SD 47.8 fL; WBC 3.62 10^3/uL (4.4-10.8)
[2022-02-13 14:10] LABS: ALT 21 U/L (14-59); AST 15 U/L (15-37); Albumin 3.5 g/dL (3.4-5.0); Alkaline Phosphatase 76 U/L (46-116); Anion Gap 8.1 mmol/L (3-11); BUN 8 mg/dL (7-18); Bilirubin, Total 0.4 mg/dL (0.2-1.0); CO2 27.9 mmol/L (21.0-32.0); CREATININE 0.9 mg/dL (0.55-1.02); Calcium 9.2 mg/dL (8.5-10.1); Chloride 100 mmol/L (98-107); Glucose 102 mg/dL (74-106); Potassium 3.1 mmol/L (3.5-5.1); Sodium 136 mmol/L (136-145); Total Protein 6.6 g/dL (6.4-8.2)
== END 2022-02-23 23:59 | disposition home or self-care (01) ==
LOC: INF 02:26
PROVIDERS: PCP Family Medicine; Visit Provider Internal Medicine Medical Oncology
DX: C34.92 Malignant neoplasm of unspecified part of left bronchus or lung (principal); Z45.2 Encounter for adjustment and management of vascular access device
CPT/HCPCS: 36591; 80053; 83735; 85025

== ENCOUNTER 2022-02-17 03:06 | Outpatient (CLI) | payer MEDICARE, SELFPAY ==
[2022-02-17 11:00] VITALS: BP 153/71; PULSE 88; RESP 16; TEMP 36.6; O2SAT 97
[2022-02-17] MEDS: Normal Saline 250 ML 30 ML IV (11:20)
[2022-02-17 12:54] VITALS: BP 119/68; PULSE 87; RESP 16; TEMP 36.6; O2SAT 95
== END 2022-02-17 03:07 | disposition home or self-care (01) ==
PROVIDERS: Visit Provider Family Medicine
DX: U07.1 COVID-19 (principal)
CPT/HCPCS: 96365; Q0047

== ENCOUNTER 2022-04-25 18:17 | Outpatient (CLI) | payer MEDICARE, SELFPAY ==
[2022-04-25 17:42] LABS: CREATININE 0.9 mg/dL (0.55-1.02)
== END 2022-04-25 18:18 | disposition home or self-care (01) ==
LOC: LBO 18:20
PROVIDERS: PCP Family Medicine; Visit Provider Radiology Radiation Oncology
DX: C79.51 Secondary malignant neoplasm of bone (principal)
CPT/HCPCS: 36415; 82565

== ENCOUNTER 2022-05-22 03:11 | Outpatient (RCR) | payer MEDICARE, SELFPAY ==
[2022-05-22] MEDS: Normal Saline Flush 10 ML SYR IVP (13:27)
[2022-05-22] MEDS: Heparin 500 UNITS/5 ML SYRINGE IV (13:28)
[2022-05-22 14:03] LABS: Abs Immature Grans 0.01 10^3/uL (0.0-0.06); Absolute Basophil Count 0.04 10^3/uL (0.0-0.2); Absolute Eosinophil Count 0.18 10^3/uL (0.0-0.7); Absolute Monocyte Count 0.45 10^3/uL (0.1-0.8); Absolute Neutrophil Count 2.73 10^3/uL (1.2-6.7); Eosinophils % 4.3; HCT 36.5 % (36.0-46.0); HGB 12.7 g/dL (11.2-15.7); Immature Grans % 0.2; MCH 32.1 pg (27.0-33.0); MCHC 34.8 % (32.0-36.0); MCV 92 fL (80-95); MPV 9.6 fL (8.0-11.0); Monocytes % 10.7; Neutrophils % 64.8; Platelet Count 273 10^3/uL (130-400); RBC 3.96 10^6/uL (3.93-5.22); RDW 13.6 % (11.7-14.6); RDW-SD 46.2 fL; WBC 4.21 10^3/uL (4.4-10.8)
[2022-05-22 14:19] LABS: ALT 22 U/L (14-59); AST 22 U/L (15-37); Albumin 3.5 g/dL (3.4-5.0); Alkaline Phosphatase 87 U/L (46-116); BUN 12 mg/dL (7-18); Bilirubin, Total 0.3 mg/dL (0.2-1.0); CREATININE 0.8 mg/dL (0.55-1.02); Calcium 8.8 mg/dL (8.5-10.1); Chloride 99 mmol/L (98-107); Glucose 112 mg/dL (74-106); Magnesium 1.8 mg/dL (1.8-2.4); Potassium 3.6 mmol/L (3.5-5.1); Sodium 135 mmol/L (136-145); Total Protein 6.6 g/dL (6.4-8.2)
== END 2022-05-25 23:59 | disposition home or self-care (01) ==
LOC: INF 03:11
PROVIDERS: PCP Family Medicine; Visit Provider Internal Medicine Medical Oncology
DX: C34.92 Malignant neoplasm of unspecified part of left bronchus or lung (principal); Z45.2 Encounter for adjustment and management of vascular access device
CPT/HCPCS: 36591; 80053; 83735; 85025